=== PATIENT | female | born 1995 | race African-American/Black ===

== ENCOUNTER 2018-04-23 01:18 | Emergency (ER) | payer SELFPAY ==
[2018-04-23] MEDS ORDERED: Sodium Chloride 0.9% 1,000 ML IV ONE (01:25)
[2018-04-23] MEDS ORDERED: Aspirin 81 MG Tab.Chew PO ONE (01:25)
--- NOTE | 2018-04-23 01:25 | EDM.PDOC ---
ED HPI GENERAL MEDICAL PROBLEM - General Chief Complaint: Chest Pain Stated Complaint: CHEST PAIN Time Seen by Provider: 04/23/18 01:24 Source of Information: Reports: Patient - History of Present Illness INITIAL COMMENTS - FREE TEXT/NARRATIVE: HISTORY AND PHYSICAL: History of present illness: [Patient presents with chest pain 5 out of 10 nonradiating no association with shortness breath or diaphoresis no radiation arm neck or jaw, she had taken aspirin earlier today 325 mg She has been somewhat gassy today she did drink Sprite to try and burp she has been burping No fever nausea vomiting chills sweats no shortness breath headache dizziness palpitation no bowel or urine symptoms ] Review of systems: As per history of present illness and below otherwise all systems reviewed and negative. Past medical history: As per history of present illness and as reviewed below otherwise noncontributory. Surgical history: As per history of present illness and as reviewed below otherwise noncontributory. Social history: No reported history of drug or alcohol abuse. Family history: As per history of present illness and as reviewed below otherwise noncontributory. Physical exam: HEENT: Atraumatic, normocephalic, pupils reactive, negative for conjunctival pallor or scleral icterus, mucous membranes moist, throat clear, neck supple, nontender, trachea midline. Lungs: Clear to auscultation, breath sounds equal bilaterally, chest nontender. Heart: S1S2, regular, negative for clicks, rubs, or JVD. Abdomen: Soft, nondistended, nontender. Negative for masses or hepatosplenomegaly. Negative for costovertebral tenderness. Pelvis: Stable nontender. Genitourinary: Deferred. Rectal: Deferred. Extremities: Atraumatic, negative for cords or calf pain. Neurovascular unremarkable. Neuro: Awake, alert, oriented. Cranial nerves II through XII unremarkable. Cerebellum unremarkable. Motor and sensory unremarkable throughout. Exam nonfocal. Diagnostics: [CBC CMP UA troponin lipase EKG Chest 1 view ] Therapeutics: [ normal saline Aspirin 324 mg chewable-discontinued Proton X 80 mg IV GI cocktail Simethicone Reglan Continue omeprazole Gas-X when necessarReglan 10 mg by mouth 3 times a day when necessary ] Impression: []GERD Definitive disposition and diagnosis as appropriate pending reevaluation and review of above. Middle Chest Pain Score (Numeric/FACES): 7 ED ROS GENERAL - Review of Systems Review Of Systems: See Below ED EXAM, GENERAL - Physical Exam Exam: See Below Course - Vital Signs Last Recorded V/S: Last Vital Signs Temp 98.6 F 04/23/18 01:23 Pulse 70 04/23/18 01:23 Resp 16 04/23/18 01:23 BP 149/88 H 04/23/18 01:23 Pulse Ox 99 04/23/18 01:23 - Orders/Labs/Meds Orders: Active Orders 24 hr Category Date Time Status EKG Documentation Completion [RC] STAT Care 04/23/18 01:26 Active Chest 1V Frontal [CR] Stat Exams 04/23/18 01:26 Taken Sodium Chloride 0.9% [Normal Saline] 1,000 ml Med 04/23/18 01:25 Active IV STAT Medication Orders Sodium Chloride (Normal Saline) 1,000 mls @ 999 mls/hr IV STAT ONE Stop: 04/23/18 02:25 Last Admin: 04/23/18 01:40 Dose: 999 mls/hr Labs: Laboratory Tests 04/23/18 04/23/18 04/23/18 Range/Units 01:40 01:40 02:00 WBC 9.32 (4.0-11.0) K/uL RBC 4.44 (4.30-5.90) M/uL Hgb 13.4 (12.0-16.0) g/dL Hct 40.2 (36.0-46.0) % MCV 90.5 (80.0-98.0) fL MCH 30.2 (27.0-32.0) pg MCHC 33.3 (31.0-37.0) g/dL RDW Std Deviation 42.9 (28.0-62.0) fl RDW Coeff of Rhonda 13 (11.0-15.0) % Plt Count 287 (150-400) K/uL MPV 10.60 (7.40-12.00) fL Neut % (Auto) 59.5 (48.0-80.0) % Lymph % (Auto) 27.9 (16.0-40.0) % Bullock % (Auto) 8.6 (0.0-15.0) % Eos % (Auto) 3.9 (0.0-7.0) % Baso % (Auto) 0.1 (0.0-1.5) % Neut # (Auto) 5.6 (1.4-5.7) K/uL Lymph # (Auto) 2.6 H (0.6-2.4) K/uL Bullock # (Auto) 0.8 (0.0-0.8) K/uL Eos # (Auto) 0.4 (0.0-0.7) K/uL Baso # (Auto) 0.0 (0.0-0.1) K/uL Nucleated RBC % 0.0 /100WBC Nucleated RBCs # 0 K/uL Sodium 140 (136-145) mmol/L Potassium 3.6 (3.5-5.1) mmol/L Chloride 105 (98-107) mmol/L Carbon Dioxide 26.8 (21.0-32.0) mmol/L BUN 10 (7.0-18.0) mg/dL Creatinine 0.8 (0.6-1.0) mg/dL Est Cr Clr Drug Dosing 105.01 mL/min Estimated GFR (MDRD) > 60.0 ml/min Glucose 87 (74-106) mg/dL Calcium 9.6 (8.5-10.1) mg/dL Total Bilirubin 0.3 (0.2-1.0) mg/dL AST 11 L (15-37) IU/L ALT 16 (14-63) IU/L Alkaline Phosphatase 90 (46-116) U/L Troponin I < 0.050 (0.000-0.056) ng/mL Total Protein 7.7 (6.4-8.2) g/dL Albumin 3.7 (3.4-5.0) g/dL Globulin 4.0 (2.6-4.0) g/dL Albumin/Globulin Ratio 0.9 (0.9-1.6) Lipase 181 (73-393) U/L Urine Color YELLOW Urine Appearance CLEAR Urine pH 7.5 (5.0-8.0) Ur Specific Dawson 1.015 (1.001-1.035) Urine Protein NEGATIVE (NEGATIVE) mg/dL Urine Glucose (UA) NEGATIVE (NEGATIVE) mg/dL Urine Ketones NEGATIVE (NEGATIVE) mg/dL Urine Occult Blood NEGATIVE (NEGATIVE) Urine Nitrite NEGATIVE (NEGATIVE) Urine Bilirubin NEGATIVE (NEGATIVE) Urine Urobilinogen 1.0 (<2.0) EU/dL Ur Leukocyte Esterase NEGATIVE (NEGATIVE) Meds: Medications Generic Name Dose Route Start Last Admin Trade Name Freq PRN Reason Stop Dose Admin Sodium Chloride 1,000 mls @ 999 mls/hr 04/23/18 01:25 04/23/18 01:40 Normal Saline IV 04/23/18 02:25 999 mls/hr STAT ONE Administration Discontinued Medications Generic Name Dose Route Start Last Admin Trade Name Freq PRN Reason Stop Dose Admin Aspirin 324 mg 04/23/18 01:25 04/23/18 02:09 Aspirin PO 04/23/18 01:26 Not Given ONETIME ONE Al Hydroxide/Mg Hydroxide 15 0 ml 04/23/18 01:33 04/23/18 01:39 ml/ Metoclopramide HCl 5 mg/ PO 04/23/18 01:34 1 each Lidocaine HCl 5 ml ONETIME ONE Administration Metoclopramide HCl 10 mg 04/23/18 02:08 04/23/18 02:18 Reglan IV 04/23/18 02:09 10 mg ONETIME ONE Administration Pantoprazole Sodium 80 mg 04/23/18 01:32 04/23/18 01:39 Protonix Iv IVPUSH 04/23/18 01:33 80 mg .BOLUS ONE Administration Simethicone 160 mg 04/23/18 02:08 04/23/18 02:17 Simethicone PO 04/23/18 02:09 160 mg ONETIME ONE Administration Departure - Departure Time of Disposition: 02:23 Disposition: Home, Self-Care 01 Condition: Good Clinical Impression: Gastroesophageal reflux disease - Discharge Information Forms: ED Department Discharge Additional Instructions: The following information is given to patients seen in the emergency department who are being discharged to home. This information is to outline your options for follow-up care. We provide all patients seen in our emergency department with a follow-up referral. The need for follow-up, as well as the timing and circumstances, are variable depending upon the specifics of your emergency department visit. If you don't have a primary care physician on staff, we will provide you with a referral. We always advise you to contact your personal physician following an emergency department visit to inform them of the circumstance of the visit and for follow-up with them and/or the need for any referrals to a consulting specialist. The emergency department will also refer you to a specialist when appropriate. This referral assures that you have the opportunity for follow-up care with a specialist. All of these measure are taken in an effort to provide you with optimal care, which includes your follow-up. Under all circumstances we always encourage you to contact your private physician who remains a resource for coordinating your care. When calling for follow-up care, please make the office aware that this follow-up is from your recent emergency room visit. If for any reason you are refused follow-up, please contact the [facility] emergency department at and asked to speak to the emergency department charge nurse. - My Orders Last 24 Hours: My Active Orders 04/23/18 01:25 Sodium Chloride 0.9% [Normal Saline] 1,000 ml IV STAT 04/23/18 01:26 EKG Documentation Completion [RC] STAT Chest 1V Frontal [CR] Stat - Assessment/Plan Last 24 Hours: My Active Orders 04/23/18 01:25 Sodium Chloride 0.9% [Normal Saline] 1,000 ml IV STAT 04/23/18 01:26 EKG Documentation Completion [RC] STAT Chest 1V Frontal [CR] Stat
[2018-04-23] MEDS ORDERED: Pantoprazole 40 MG Vial IVPUSH ONE (01:32)
[2018-04-23] MEDS ORDERED: Alum Hydrox/Mag Hydrox/Simeth 15 ML, Metoclopramide 5 MG, Lidocaine 2% 5 ML PO ONE ×3 (01:33)
[2018-04-23] MEDS ORDERED: Simethicone 80 MG Tab.Chew PO ONE (02:08)
[2018-04-23] MEDS ORDERED: Metoclopramide 10 MG/2 ML SDV IV ONE (02:08)
[2018-04-23 02:13] LABS: CHLORIDE,CL 105 mmol/L (98-107); SODIUM,NA 140 mmol/L (136-145)
--- NOTE | 2018-04-23 03:10 | CR ---
INDICATION: chest pain. no prior. 1 image TECHNIQUE: Chest 1 view. COMPARISON: None. FINDINGS: Cardiovascular and mediastinum: Heart size and vasculature are normal in caliber and appearance. Mediastinum is within normal limits. Lungs and pleural space: Lungs are clear. No sign of infiltrate or mass. No sign of pleural effusion. No pneumothorax. Bones and soft tissues: No significant findings. IMPRESSION: Unremarkable chest. Dictated by: Olu Bhakta MD @ 04/23/2018 03:09:00 (Electronically Signed)
== END 2018-04-23 02:40 | disposition home or self-care (01) ==
LOC: MW.ED 01:18
DX: K21.9 Gastro-esophageal reflux disease without esophagitis (principal)
CPT/HCPCS: 71045; 80053; 81003; 83690; 84484; 85025; 93005; 96361; 96374; 96375; 99285; A9270; C9113; J2765; J7040